=== PATIENT | female | born 1970 | race Caucasian/White ===

== ENCOUNTER → 2017-12-17 | Outpatient (CLI) | payer OTHER ==
[2017-12-17 15:43] LABS: FREE T3 3.64 pg/mL (2.77-5.27); FREE T4 (FREE THYROXINE) 0.75 ng/dL (0.78-2.19)
[2017-12-17 15:58] LABS: THYROID STIMULATING HORMONE 3.59 uIU/mL (0.47-4.68)
[2017-12-18 09:00] LABS: THYROID PEROXIDASE (TPO) AB 20 IU/mL (0-34)
[2017-12-18 15:17] LABS: THYROGLOBULIN AB <1.0 IU/mL (0.0-0.9)
== END ==
LOC: OD 14:07
PROVIDERS: ATTEND Surgery
DX: E04.1 Nontoxic single thyroid nodule (principal)
CPT/HCPCS: 36415; 84439; 84443; 84481; 86376; 86800

== ENCOUNTER 2019-05-14 05:25 | Day surgery (SDC) | payer BC, OTHER ==
--- NOTE | 2019-05-07 11:12 | RADIOLOGY REPORT (SQ) ---
EXAM DESCRIPTION: CHEST PA/LATERAL COMPLETED DATE/TIME: 05/07/2019 10:57 am REASON FOR STUDY: PRE-OP COMPARISON: None. EXAM PARAMETERS: NUMBER OF VIEWS: two views TECHNIQUE: Digital Frontal and Lateral radiographic views of the chest acquired. RADIATION DOSE: NA LIMITATIONS: none FINDINGS: LUNGS AND PLEURA: No consolidation, pleural effusion or pneumothorax. MEDIASTINUM AND HILAR STRUCTURES: No mediastinal or hilar contour abnormality. HEART AND VASCULAR STRUCTURES: Normal cardiac silhouette and pulmonary vasculature. BONES: No acute findings. HARDWARE: None in the chest. OTHER: No other finding. IMPRESSION: No acute cardiopulmonary process. TECHNICAL DOCUMENTATION: JOB ID: [id number] All Rights Reserved Reading location - IP/workstation name: [email or web address]
[2019-05-07 11:14] LABS: HEMATOCRIT 39.4 % (36.0-47.0); HEMOGLOBIN 13.6 g/dL (12.0-15.5); MEAN CORPUSCULAR HEMOGLOBIN 28.8 pg (27.0-33.4); MEAN CORPUSCULAR HGB CONC 34.4 g/dL (32.0-36.0); MEAN CORPUSCULAR VOLUME 84 fl (80-97); PLATELET COUNT 231 10^3/uL (150-450); RED CELL DISTRIBUTION WIDTH 13.1 % (11.5-14.0); WHITE BLOOD COUNT 4.6 10^3/uL (4.0-10.5)
[2019-05-07 11:40] LABS: ANION GAP 8 (5-19); BLOOD UREA NITROGEN 14 mg/dL (7-20); CALCIUM 9.5 mg/dL (8.4-10.2); CARBON DIOXIDE 28 mmol/L (22-30); CHLORIDE 102 mmol/L (98-107); GLUCOSE 112 mg/dL (75-110); POTASSIUM 4.6 mmol/L (3.6-5.0)
--- NOTE | 2019-05-07 22:18 | EKG REPORT ---
SEVERITY:- NORMAL ECG - SINUS RHYTHM : Confirmed by: Rylee Weber MD 07-May-2019 22:18:16
[~2019-05-14 05:25] MED LIST: CEFAZOLIN 1 GM/D5W RTU 1 GM/50 ML RTUPB IV ONE; CEFAZOLIN 1 GM/D5W RTU 1 GM/50 ML RTUPB IV PRN; DEXTROSE 5%-LACTATED RINGERS 1,000 ML IV PRN; LACTATED RINGERS 1000 ML IV PRN; LIDOCAINE 0.5% INJ-PF (5 MG/ML) 50 ML SDV SUBCUT PRN
[2019-05-14] MEDS ORDERED: MICROFIBRILLAR COLLAGEN 1 GM PACK ONE (07:09)
[2019-05-14] MEDS ORDERED: FENTANYL CITRATE INJ/PF 100 MCG/2 ML AMPUL ONE ×2 (07:10→09:58)
[2019-05-14] MEDS ORDERED: MIDAZOLAM 2 MG/2 ML INJ ONE (07:10)
[2019-05-14] MEDS ORDERED: PROPOFOL INJ 200 MG/20 ML VIAL IV ONE (07:11)
[2019-05-14] MEDS ORDERED: EPHEDRINE SULFATE INJ 50 MG/1 ML AMPULE ONE (07:11)
[2019-05-14] MEDS ORDERED: MEPERIDINE HCL/PF INJ 25 MG/1 ML DISP.SYRIN IV PRN (08:02)
[2019-05-14] MEDS ORDERED: PROMETHAZINE HCL INJ 25 MG/1 ML VIAL IV PRN ×2 (08:02)
[2019-05-14] MEDS ORDERED: OXYCODONE-ACETAMINOPHEN 5-325 MG TABLET PO PRN ×3 (08:02→09:52)
[2019-05-14] MEDS ORDERED: DIPHENHYDRAMINE HCL 50 MG/ML VIAL IV PRN (08:02)
[2019-05-14] MEDS ORDERED: FENTANYL CITRATE INJ/PF 100 MCG/2 ML AMPUL IV PRN ×3 (08:02)
[2019-05-14] MEDS ORDERED: MICROFIBRILLAR COLLAGEN 1 GM PACK TP ONE (09:25)
[2019-05-14] MEDS ORDERED: NORMAL SALINE 1000 ML 1,000 ML IV PRN (09:52)
[2019-05-14] MEDS ORDERED: HYDROMORPHONE HCL INJ/PF 2 MG/ML AMPULE ONE (09:58)
--- NOTE | 2019-05-14 10:08 | Operative Report ---
Operative Report DATE OF SURGERY: 05/14/19 PREOPERATIVE DIAGNOSIS: Dominant thyroid isthmus nodule with atypia; anatomica lly absent left thyroid lobe POSTOPERATIVE DIAGNOSIS: Same OPERATION: Isthmusectomy and right thyroid lobectomy (complete thyroidectomy) SURGEON: ALLEGRA BURNS 1ST MULTIPLE DRILL OPERATOR: VIJAYA LAU TISSUE REMOVED OR ALTERED: Isthmus and right thyroid lobe COMPLICATIONS: none ESTIMATED BLOOD LOSS: 75 cc INTRAOPERATIVE FINDINGS: see below PROCEDURE: The patient was seen in the preop holding her with a neck was marked for a standard transcervical incision by Dr. Burns. She was then taken to the main operating room general anesthesia was induced. Arms were tucked, neck extended, beanbag placed between the shoulder blades, anterior neck exposed, prepped and draped in sterile fashion Surgical plan and surgical timeout were conducted. The neck was opened through a standard transcervical incision, 6 cm in length. Superior and inferior skin and platysma flaps were raised uneventfully. The sternohyoid and sternothyroid muscles were divided midline. The patient was known preoperatively to have a anatomically absent left thyroid lobe. The dominant thyroid mass being the isthmus, previously aspirated on multiple occasions, with logic evidence of atypia was appreciated. Elevated the right strap muscles off of the anterior surface of the mass and right thyroid lobe. The dissection was carried all the way to the carotid space. We decided at this point to proceed with isthmusectomy in conjunction with right thyroid lobectomy. The inferior pole branches were taken between clips uneventfully. The right inferior parathyroid gland was not definitively seen. The inferior pole came off of the trachea uneventfully. The patient had a moderate sized foraminal lobe which was taken off of the upper trachea, and quite prominence. We then mobilized the muscles above the superior pole, proceeded to take the pole down between clips, staying right on the gland proper. Now working in a circumferential fashion, we began to free up all of the loose areolar tissue on the lateral side of the right lobe. The posterior surface of the lobe came off of the trachea with minimal difficulty. The right recurrent laryngeal nerve was of substantial caliber, and maintained throughout the dissection of the parenchyma coming off of Palmer's ligament. Branches to the thyroid artery were divided at the level of the gland. The right upper parathyroid gland was not definitively visualized. Eventually the gland was completely freed up, taken off of the field, all clips removed, long suture placed in the lateral position, short suture placed in superior position. The specimen was sent to pathology, evaluated by Dr. Martínez, and felt to contain the target nodule with a acceptable margin of thyroid parenchyma surrounding it. Wound was carefully inspected for bleeding and there was none. Avitene was mixed into a slurry with saline, and deployed into the recesses of the operative wound. Strap muscles were closed with 2-0 Vicryl interrupted, platysma and skin closed with 3-0 Vicryl. Dermabond glue applied after neck taken out of extension. Patient tolerated the procedure well, extubated, taken recovery room in stable condition. There the patient was phonating satisfactorily. The physician phlebotomist medical lab assistant, Ms. Snyder, provided assistance during this case by: Assisting with retracting tissue, instillation of local anesthesia and closure of skin incisions.
[2019-05-14] MEDS ORDERED: SCOPOLAMINE HYDROBROMIDE 1.5 MG PATCH.TD72 ONE (10:09)
[2019-05-14] MEDS ORDERED: ONDANSETRON HCL INJ/PF 4 MG/2 ML SDV ONE ×2 (10:09→10:56)
[2019-05-14] MEDS: PROMETHAZINE HCL INJ 25 MG/1 ML VIAL ONE ×2 (10:15→10:30)
[2019-05-14] MEDS ORDERED: KETOROLAC TROMETHAMINE 60 MG/2 ML SDV ONE (10:56)
[2019-05-14] MEDS ORDERED: NEOSTIGMINE METHYLSULFATE 10 MG/10 ML VIAL ONE (10:56)
[2019-05-14] MEDS ORDERED: ROCURONIUM BROMIDE INJ 50 MG/5 ML VIAL IV ONE (10:56)
[2019-05-14] MEDS ORDERED: DEXAMETHASONE SOD PHOSPHATE INJ 4 MG/1 ML VIAL ONE (10:56)
[2019-05-14] MEDS ORDERED: SUCCINYLCHOLINE CHLORIDE INJ 200 MG/10 ML VIAL ONE (10:56)
[2019-05-14] MEDS ORDERED: GLYCOPYRROLATE 1 MG/5 ML VIAL ONE (10:56)
[2019-05-14] MEDS ORDERED: LIDOCAINE 2% INJ-PF (20 MG/ML) 2 ML AMPUL ONE (10:56)
[2019-05-14] MEDS ORDERED: ACETAMINOPHEN INJ/PF 1000 MG/100 ML SDV IV SCH (12:00)
[2019-05-14] MEDS: ACETAMINOPHEN WITH CODEINE #3 TABLET PO PRN (17:48)
[2019-05-15] MEDS: ACETAMINOPHEN WITH CODEINE #3 TABLET PO PRN (10:22)
[2019-05-15] MEDS ORDERED: LEVOTHYROXINE SODIUM 0.05 MG TABLET PO ONE (12:00)
[2019-05-15] MEDS ORDERED: LEVOTHYROXINE SODIUM 0.1 MG TABLET PO ONE (12:00)
[2019-05-15 12:53] VITALS: BP 110/64
== END 2019-05-15 13:25 | disposition home or self-care (01) ==
LOC: OROUT 05:25 → 2N 11:00 → OROUT 05-15 13:25
PROVIDERS: ATTEND Surgery
DX: D34 Benign neoplasm of thyroid gland (principal); E04.2 Nontoxic multinodular goiter; Z79.899 Other long term (current) drug therapy
CPT/HCPCS: 93005; 36415 ×2; 82310; 85027; 81025; 80048; 71046; 94799; 93010; 60240; J2250; J0690; J3490 ×5; J1100; J1885; J3010; J2710; J1170; J2550; J0330; J2405; J7030; J2704; J0131; 320

== ENCOUNTER → 2019-08-01 | Outpatient (CLI) | payer BC ==
[2019-08-01 16:58] LABS: FREE T3 3.26 pg/mL (2.77-5.27); FREE T4 (FREE THYROXINE) 1.17 ng/dL (0.78-2.19)
[2019-08-01 17:12] LABS: THYROID STIMULATING HORMONE 0.21 uIU/mL (0.47-4.68)
== END ==
LOC: OD 15:21
PROVIDERS: ATTEND Surgery
DX: E04.1 Nontoxic single thyroid nodule (principal); Z98.890 Other specified postprocedural states
CPT/HCPCS: 36415; 84439; 84443; 84481

== ENCOUNTER → 2019-11-12 | Outpatient (CLI) | payer BC ==
[2019-11-12 17:06] LABS: FREE T3 4.26 pg/mL (2.77-5.27); FREE T4 (FREE THYROXINE) 1.46 ng/dL (0.78-2.19)
[2019-11-12 17:19] LABS: THYROID STIMULATING HORMONE 0.06 uIU/mL (0.47-4.68)
== END ==
LOC: OD 15:42
PROVIDERS: ATTEND Surgery
DX: E04.1 Nontoxic single thyroid nodule (principal); Z98.890 Other specified postprocedural states
CPT/HCPCS: 36415; 84439; 84443; 84481

== ENCOUNTER → 2020-01-16 | Outpatient (CLI) | payer BC ==
[2020-01-16 17:51] LABS: FREE T3 3.35 pg/mL (2.77-5.27); FREE T4 (FREE THYROXINE) 1.23 ng/dL (0.78-2.19)
[2020-01-16 18:05] LABS: THYROID STIMULATING HORMONE 1.52 uIU/mL (0.47-4.68)
== END ==
LOC: OD 16:27
PROVIDERS: ATTEND Surgery
DX: Z09 Encounter for follow-up examination after completed treatment for conditions other than malignant neoplasm (principal); Z90.09 Acquired absence of other part of head and neck
CPT/HCPCS: 36415; 84439; 84443; 84481

== ENCOUNTER → 2020-06-24 | Outpatient (CLI) | payer BC ==
[2020-06-24 17:06] LABS: FREE T3 3.24 pg/mL (2.77-5.27); FREE T4 (FREE THYROXINE) 1.05 ng/dL (0.78-2.19)
[2020-06-24 17:20] LABS: THYROID STIMULATING HORMONE 1.33 uIU/mL (0.47-4.68)
== END ==
LOC: OD 16:03
PROVIDERS: ATTEND Surgery
DX: R49.0 Dysphonia (principal); R53.83 Other fatigue; Z90.09 Acquired absence of other part of head and neck
CPT/HCPCS: 36415; 84439; 84443; 84481